=== PATIENT | female | born 1970 | race Caucasian/White ===

== ENCOUNTER 2017-02-08 10:39 | Emergency (ER) | payer OTHER ==
[~2017-02-08] VITALS: Ht 165.1 cm; Wt 98.7 kg
[~2017-02-08 10:39] MED LIST: LRT5 PO
[2017-02-08 10:50] VITALS: TEMP 36.9; Ht 165.1 cm; Wt 98.7 kg
[2017-02-08] MEDS ORDERED: BCPILLS PO (10:53)
[2017-02-08 11:38] LABS: BASO % 0.2 %; BASO ABS # 0.02 K/uL (0-0.2); COMPLETE YES; EOS % 0.6 %; HEMATOCRIT 38.1 % (37-47); IG% 0.2 %; LYMPH % 23.8 %; LYMPH ABS # 2.09 K/uL (1.2-3.4); MEAN CELL VOLUME 90.1 fL (80-100); MEAN CORPUSCULAR HEMOGLOBIN 31.2 pg (25-34); MEAN CORPUSCULAR HGB CONC 34.6 g/dl (32-36); MEAN PLATELET VOLUME 10.8 fL (7.4-10.4); MONO % 8.2 %; PLATELET COUNT 203 K/uL (130-400); RED BLOOD COUNT 4.23 M/uL (4.2-5.4); WHITE BLOOD COUNT 8.77 K/uL (4.8-10.8)
--- NOTE | 2017-02-08 11:54 | DIAGNOSTIC IMAGING REPORT ---
CHEST ONE VIEW PORTABLE CLINICAL HISTORY: Evaluate Fever/Sepsis fever COMPARISON STUDY: No previous studies for comparison. FINDINGS: The bones soft tissues and hemidiaphragms are normal. The cardiomediastinal silhouette is normal. The lungs are clear. The pulmonary vasculature is normal. IMPRESSION: Negative chest. Electronically signed by: Fawad Stevens M.D. 02/08/2017 11:53 AM Dictated Date/Time: 02/08/2017 11:53 AM
[2017-02-08 11:58] LABS: BLOOD UREA NITROGEN 12 mg/dl (7-18); BUN/CREATININE RATIO 13.2 (10-20); CARBON DIOXIDE 19 mmol/L (21-32); CHLORIDE 107 mmol/L (98-107); GLUCOSE 120 mg/dl (70-99); POTASSIUM 3.6 mmol/L (3.5-5.1); SODIUM 141 mmol/L (136-145)
[2017-02-08] MEDS ORDERED: HYDR12.55 PO (12:34)
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
[2017-02-08 12:44] VITALS: BP 174/101; PULSE 89; O2SAT 99
== END 2017-02-08 12:55 | disposition home or self-care (01) ==
LOC: EDBD 10:39 → C.EDB 10:41
DX: S50.12XA Contusion of left forearm, initial encounter (principal); V43.52XA Car driver injured in collision with other type car in traffic accident, initial encounter; Y93.89 Activity, other specified; Y92.488 Other paved roadways as the place of occurrence of the external cause; I10 Essential (primary) hypertension; Z79.3 Long term (current) use of hormonal contraceptives; Z79.899 Other long term (current) drug therapy

== ENCOUNTER → 2017-02-12 | Outpatient (CLI) | payer OTHER ==
[~2017-02-12] MED LIST changes: +BCPILLS PO; +HYDR12.55 PO; -LRT5 PO
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
== END | disposition home or self-care (01) ==
LOC: C.RADPV 11:14
PROVIDERS: ATTEND Nurse Practitioner
DX: S39.012A Strain of muscle, fascia and tendon of lower back, initial encounter (principal); M25.532 Pain in left wrist; M79.602 Pain in left arm; M54.6 Pain in thoracic spine; V89.2XXA Person injured in unspecified motor-vehicle accident, traffic, initial encounter